=== PATIENT | male | born 1965 | race Caucasian/White ===

== ENCOUNTER 2022-03-03 14:44 | Outpatient (CLI) | payer OTHER, SELFPAY | END 2022-03-03 14:45 | disposition home or self-care (01) | LOC: RAD 14:45 | PROVIDERS: PCP Family Medicine; Visit Provider Family Medicine | DX: R06.00 Dyspnea, unspecified (principal) | CPT/HCPCS: 93306 ==

== ENCOUNTER 2022-08-19 08:24 | Outpatient (CLI) | payer OTHER, SELFPAY ==
[2022-08-19 13:12] LABS: Chloride* 107 mmol/L (96-114)
[2022-08-19 13:13] LABS: Albumin* 4.3 g/dL (3.3-5.0)
[2022-08-19 13:14] LABS: Potassium* 4.6 mmol/L (3.6-5.1); Sodium* 140 mmol/L (135-149)
[2022-08-19 13:16] LABS: Alanine Aminotransferase* 27 U/L (4-50); Alkaline Phosphatase* 75 U/L (40-150); Aspartate Amino Transferase* 30 U/L (12-35); Bilirubin Total* 1.2 mg/dL (0.1-1.5); Blood Urea Nitrogen* 19 mg/dL (7-30); Carbon Dioxide* 29 mmol/L (20-32); Cholesterol* 178 mg/dL (90-199); Creatinine* 0.8 mg/dL (0.5-1.5); Estimated Glomerular Filt Rate 104 ml/min; Glucose* 88 mg/dL (60-115); Total Protein* 6.9 g/dL (6.0-8.3)
[2022-08-19 13:17] LABS: Calcium* 9.4 mg/dL (8.4-10.6); HDL Cholesterol* 51 mg/dL (>=40); LDL Cholesterol Calculated 109 mg/dL (<100); Magnesium* 2.1 mg/dL (1.5-2.6); Triglycerides* 89 mg/dL (40-149)
[2022-08-25 09:03] LABS: Sex Hormone Binding Globulin 48 nmol/L (19-76); Testosterone, Free LC-MS/MS 75.9 pg/mL (47.0-244.0); Testosterone, LC-MS/MS 500 ng/dL (300-890)
== END 2022-08-19 08:25 | disposition home or self-care (01) ==
PROVIDERS: PCP Family Medicine; Visit Provider Family Medicine
DX: Z00.00 Encounter for general adult medical examination without abnormal findings (principal); E78.2 Mixed hyperlipidemia; I10 Essential (primary) hypertension; K21.9 Gastro-esophageal reflux disease without esophagitis; N40.0 Benign prostatic hyperplasia without lower urinary tract symptoms; N52.9 Male erectile dysfunction, unspecified
CPT/HCPCS: 80053; 80061; 83735; 84270; 84402; 84403

== ENCOUNTER 2023-09-07 11:24 | Outpatient (CLI) | payer BC, SELFPAY | END 2023-09-07 11:25 | disposition home or self-care (01) | PROVIDERS: PCP Family Medicine; Visit Provider Family Medicine | DX: Z01.818 Encounter for other preprocedural examination (principal); E78.5 Hyperlipidemia, unspecified; N40.0 Benign prostatic hyperplasia without lower urinary tract symptoms | CPT/HCPCS: 80053; 80061; G0103 ==

== ENCOUNTER 2025-01-02 13:55 | Outpatient (CLI) | payer BC, SELFPAY | END 2025-01-02 13:56 | disposition home or self-care (01) | PROVIDERS: PCP Family Medicine; Visit Provider Family Medicine | DX: E78.2 Mixed hyperlipidemia (principal); Z12.5 Encounter for screening for malignant neoplasm of prostate; N40.0 Benign prostatic hyperplasia without lower urinary tract symptoms | CPT/HCPCS: 80048; 80061; G0103 ==